=== PATIENT | female | born 1955 | race Asian ===

== ENCOUNTER 2018-11-05 12:55 | Day surgery (SDC) | payer OTHER ==
[~2018-11-05] VITALS: Ht 154.9 cm; Wt 65.5 kg
== END 2018-11-05 15:23 | disposition home or self-care (01) ==
LOC: ORSCSDS 12:55
PROVIDERS: Student in an Organized Health Care Education/Training Program
PROC: 0DJD8ZZ Inspection of Lower Intestinal Tract, Via Natural or Artificial Opening Endoscopic (ICD-10-PCS; principal; 2018-11-05 14:15)
DX: Z12.11 Encounter for screening for malignant neoplasm of colon (principal); K57.30 Diverticulosis of large intestine without perforation or abscess without bleeding; K62.89 Other specified diseases of anus and rectum
CPT/HCPCS: J2704; J7120